=== PATIENT | female | born 1970 | race Caucasian/White ===

== ENCOUNTER 2017-04-09 21:25 | Emergency (ER) | payer BC, OTHER ==
[~2017-04-09] VITALS: Ht 152.4 cm; Wt 76.8 kg
[2017-04-09 21:30] VITALS: TEMP 37.2; Ht 152.4 cm; Wt 76.8 kg
[2017-04-09] MEDS ORDERED: SODIUM CHLORIDE 0.9% 1000ML 1,000 ML IV STA (21:45)
--- NOTE | 2017-04-09 21:56 | EMERGENCY ROOM VISIT NOTE ---
History Report prepared by Annette: Lucy Evangelista Under the Supervision of: Dr. Jj Cox M.D. First contact with patient: 21:39 Chief Complaint: CONGESTION Stated Complaint: CHEST CONGESTION, DIFFICULTY TAKING DEEP BREATHS History of Present Illness The patient is a 46 year old female who presents to the Emergency Room with complaints of constant congestion beginning 3 weeks ago. The patient states that she woke up 3 weeks ago with chest congestion and a cough. She reports that she flew to [place] a few days later and her cough worsened while she was on vacation. She complains of a non-productive cough, shortness of breath on exertion and intermittent chills. The patient denies any swelling in the legs, calf pain, and fever. She reports no history of kidney problems, blood clots, daily medications, control use, recent surgeries. She notes that she takes Claritin and Mucinex as needed and is not on any daily medications or blood thinners. Source of History: patient Onset: 3 weeks ago Position: other (global) Quality: other (congestion) Timing: constant Modifying Factors (Worsening): exertion Associated Symptoms: + chills, + cough, + SOB, No fevers Note: No calf pain, leg swelling. Review of Systems See HPI for pertinent positives & negatives. A total of 10 systems reviewed and were otherwise negative. Past Medical & Surgical Medical Problems: (1) No Known Active Medical Problems Family History No pertinent family history stated. Social History Smoking Status: Never Smoker Marital Status: Housing Status: lives with significant other Occupation Status: unemployed Current/Historical Medications Scheduled Ascorbic Acid (Vitamin C), 1,000 MG PO DAILY Levofloxacin (Levaquin), 1 TAB PO DAILY Prednisone (Prednisone), 50 MG PO DAILY Scheduled PRN Ibuprofen Tab (Advil), 400 MG PO UD PRN for Pain or Fever Pseudoephedrine-Guaifenesin (Mucinex D), 1 TAB PO BID PRN for Congestion Allergies Coded Allergies: Sulfa Antibiotics (Verified Allergy, Intermediate, Rash, 04/09/17) Physical Exam Vital Signs Date Time Temp Pulse Resp B/P (MAP) Pulse Ox O2 Delivery O2 Flow Rate FiO2 04/09/17 23:28 91 20 132/89 95 04/09/17 21:30 37.2 74 18 142/99 91 Room Air Physical Exam GENERAL: Patient is dyspneic and in mild distress HEENT: No acute trauma, normocephalic atraumatic, mucous membranes moist, no nasal congestion, no scleral icterus. NECK: No stridor, no adenopathy, no meningismus, trachea is midline. LUNGS: Crackles in the left lower lobe but otherwise clear, periodic dry cough. No wheeze, no rhonchi. HEART: Regular rate and rhythm. No murmurs, rubs, gallops appreciated. ABDOMEN: Soft, nontender, bowel sounds positive, no masses appreciated, no peritonitis. BACK: No midline tenderness, no CVA tenderness EXTREMITIES: Normal motion all extremities, no cyanosis, no edema. NEUROLOGIC: Alert and oriented, no acute motor or sensory deficits, no focal weakness, cranial nerves grossly intact. SKIN: No rash, no jaundice, no diaphoresis. Medical Decision & Procedures ER Provider Diagnostic Interpretation: Radiology results and stated below per my review and radiologist interpretation: CT ANGIOGRAPHY OF THE CHEST, PULMONARY EMBOLUS PROTOCOL FINDINGS: No pulmonary emboli are identified. There is no evidence of thoracic aortic dissection. The size of the heart is normal. There is no pericardial effusion. There are no enlarged thoracic lymph nodes. There are scattered tree-in-bud nodules within the lingula and left lower lobe. There is no pneumothorax or pleural effusion. There is no cavitation. Bony thorax and upper abdomen are unremarkable. IMPRESSION: 1. No pulmonary emboli identified. 2. Mild scattered tree-in-bud nodules within the left lower lobe and lingula which suggest bronchiolitis. Electronically signed by: Chai Puri M.D. 04/09/2017 10:44 PM Dictated Date/Time: 04/09/2017 10:37 PM Laboratory Results 04/09/17 21:54 Red Blood Count 4.68, Mean Corpuscular Volume 87.6, Mean Corpuscular Hemoglobin 29.1, Mean Corpuscular Hemoglobin Concent 33.2, Mean Platelet Volume 9.5, Neutrophils (%) (Auto) 58.5, Lymphocytes (%) (Auto) 34.1, Monocytes (%) (Auto) 5.5, Eosinophils (%) (Auto) 1.5, Basophils (%) (Auto) 0.2, Neutrophils # (Auto) 7.21, Lymphocytes # (Auto) 4.21, Monocytes # (Auto) 0.68, Eosinophils # (Auto) 0.19, Basophils # (Auto) 0.03 04/09/17 21:54 Test 04/09/17 21:54 04/09/17 22:00 White Blood Count 12.35 K/uL (4.8-10.8) Red Blood Count 4.68 M/uL (4.2-5.4) Hemoglobin 13.6 g/dL (12.0-16.0) Hematocrit 41.0 % (37-47) Mean Corpuscular Volume 87.6 fL (80-100) Mean Corpuscular Hemoglobin 29.1 pg (25-34) Mean Corpuscular Hemoglobin Concent 33.2 g/dl (32-36) Platelet Count 376 K/uL (130-400) Mean Platelet Volume 9.5 fL (7.4-10.4) Neutrophils (%) (Auto) 58.5 % Lymphocytes (%) (Auto) 34.1 % Monocytes (%) (Auto) 5.5 % Eosinophils (%) (Auto) 1.5 % Basophils (%) (Auto) 0.2 % Neutrophils # (Auto) 7.21 K/uL (1.4-6.5) Lymphocytes # (Auto) 4.21 K/uL (1.2-3.4) Monocytes # (Auto) 0.68 K/uL (0.11-0.59) Eosinophils # (Auto) 0.19 K/uL (0-0.5) Basophils # (Auto) 0.03 K/uL (0-0.2) RDW Standard Deviation 41.2 fL (36.4-46.3) RDW Coefficient of Variation 13.0 % (11.5-14.5) Immature Granulocyte % (Auto) 0.2 % Immature Granulocyte # (Auto) 0.03 K/uL (0.00-0.02) Est Creatinine Clear Calc Drug Dose 96.5 ml/min Estimated GFR () 121.9 Estimated GFR (Non- 105.2 BUN/Creatinine Ratio 15.6 (10-20) Calcium Level 9.2 mg/dl (8.5-10.1) Total Creatine Kinase 128 U/L (26-192) Creatine Kinase MB < 0.5 ng/ml (0.5-3.6) Creatine Kinase MB Ratio (0-3.0) Troponin I < 0.015 ng/ml (0-0.045) Bedside Hemoglobin 14.3 g/dl (12.0-16.0) Bedside Hematocrit 42 % (37-47) Bedside Sodium 137 mEq/L (135-144) Bedside Potassium 3.6 mEq/L (3.3-5.0) Bedside Chloride 99 mEq/L (101-112) Bedside Total CO2 24 mEq/l (24-31) Anion Gap 18.0 mmol/L (16-25) Bedside Blood Urea Nitrogen 10 mg/dl (7-18) Bedside Creatinine 0.6 mg/dl (0.6-1.3) Bedside Glucose (other) 95 mg/dl (70-99) Bedside Ionized Calcium (Seema) 1.17 mmol/l (1.12-1.32) Laboratory results as reviewed by me. Medications Administered Medications (Trade) Dose Ordered Sig/Cosme Route Start Time Stop Time Status Last Admin Dose Admin Sodium Chloride 1,000 ml @ 999 mls/hr Q1H1M STAT IV 04/09/17 21:45 04/09/17 22:45 DC 04/09/17 21:45 999 MLS/HR Albuterol/ Ipratropium (Duoneb) 3 ml NOW STAT INH 04/09/17 22:34 04/09/17 22:35 DC 04/09/17 22:34 3 ML Levofloxacin (Levaquin Tab) 750 mg NOW ONCE PO 04/09/17 23:15 04/09/17 23:16 DC 04/09/17 23:23 750 MG Prednisone (PredniSONE TAB) 60 mg NOW STAT PO 04/09/17 23:08 04/09/17 23:09 DC 04/09/17 23:23 60 MG Albuterol (Ventolin Hfa Inhaler) 2 puffs NOW ONCE INH 04/09/17 23:15 04/09/17 23:16 DC 04/09/17 23:23 2 PUFFS ECG Indication: other (Congestion) Rate (beats per minute): 73 Rhythm: normal sinus Findings: no acute ischemic change, no ectopy ED Course 2138: The patient was evaluated in room B4. A complete history and physical exam was performed. 2144: Sodium Chloride 1000 ml @ 999 mls/hr IV. 4: Duoneb 3ml INH. 2308: I reevaluated and updated the patient. She is feeling better after the breathing treatment. I discussed the risks and warnings of Levaquin. I advised no heavy lifting while on the medication. 2315: Albuterol 2 puffs INH, Levofloxacin 750mg PO. 2313: Reevaluated the patient. Discussed results and discharge instructions: She verbalized understanding and agreement. The patient is ready for discharge. Medical Decision Differential: Infectious, Reactive Airway Disease, Pneumonia, Pneumothorax, COPD , CHF, ACS, Pulmonary Embolism, MSK, GI, Dissection, amongst other etiologies entertained. Medication Reconciliation: I attest that I have personally reviewed the patient 's current medication list. Blood Pressure Screening: Patient was found to have a slightly elevated blood pressure due to illness. She was referred to her primary doctor for recheck and further treatment. 46 yr old female arrives with complain of SOB, GRIFFITHS, and mild hypoxia after flight to/from [facility]. With level of concern I do not feel patient is dimer indicated and that direct to CT PE indicated. Labs with mild elevated WBC. CT reveals no PE, but does have evidence of LLL inflammation which given symptoms and exam I feel is pneumonia. Given Levaquin, prednisone and duoneb. Feeling better with Duoneb. Comfortable with going home. Advised Follow up with PCP. RTED if worsening or other concerns. Reviewed risks, specifically tendon/aortic, of Levaquin. Impression Primary Impression: Pneumonia involving left lung Scribe Attestation The scribe's documentation has been prepared under my direction and personally reviewed by me in its entirety. I confirm that the note above accurately reflects all work, treatment, procedures, and medical decision making performed by me. Departure Information Dispostion Home / Self-Care Prescriptions Prednisone (PREDNISONE) 50 Mg Tab 50 MG PO DAILY for 5 Days, #5 TAB Prov: Jj Cox M.D. 04/09/17 Levofloxacin (LEVAQUIN) 750 Mg Tab 1 TAB PO DAILY for 5 Days, #5 TAB Prov: Jj oCx M.D. 04/09/17 Referrals No Doctor, Assigned (PCP) Forms HOME CARE DOCUMENTATION FORM, IMPORTANT VISIT INFORMATION Patient Instructions ED Pneumonia Adult, My [facility] Additional Instructions Your blood pressure was elevated during this visit. This is quite common in many people who are being evaluated in the Emergency Department for many reasons. However, it is important that you have your Primary Care Provider recheck your blood pressure and discuss whether treatment will be needed. adjunct faculty for medical terminology elevated blood pressure can lead to strokes, heart attacks, kidney failure amongst other medical issues. If you develop severe headaches, chest pain, weakness in arms or legs, or other concerning symptoms call 911.
[2017-04-09] MEDS ORDERED: OPTIRAY 320 IV PRN (22:00)
[2017-04-09] MEDS ORDERED: IBUP-103 PO (22:05)
[2017-04-09] MEDS ORDERED: PSEU60TA80 PO (22:05)
[2017-04-09] MEDS ORDERED: ASCO500T3 PO (22:05)
[2017-04-09 22:08] LABS: BASO % 0.2 %; BASO ABS # 0.03 K/uL (0-0.2); COMPLETE YES; EOS % 1.5 %; IG% 0.2 %; LYMPH % 34.1 %; LYMPH ABS # 4.21 K/uL (1.2-3.4); MEAN CELL VOLUME 87.6 fL (80-100); MEAN CORPUSCULAR HEMOGLOBIN 29.1 pg (25-34); MEAN CORPUSCULAR HGB CONC 33.2 g/dl (32-36); MEAN PLATELET VOLUME 9.5 fL (7.4-10.4); MONO % 5.5 %; NEUT % 58.5 %; PLATELET COUNT 376 K/uL (130-400); RED BLOOD COUNT 4.68 M/uL (4.2-5.4); WHITE BLOOD COUNT 12.35 K/uL (4.8-10.8)
[2017-04-09 22:16] LABS: ISTAT CREATININE 0.6 mg/dl (0.6-1.3); ISTAT HEMOGLOBIN 14.3 g/dl (12.0-16.0); ISTAT IONIZED CALCIUM 1.17 mmol/l (1.12-1.32)
[2017-04-09 22:33] LABS: BLOOD UREA NITROGEN 10 mg/dl (7-18); BUN/CREATININE RATIO 15.6 (10-20); CALCIUM 9.2 mg/dl (8.5-10.1); CARBON DIOXIDE 25 mmol/L (21-32); CHLORIDE 102 mmol/L (98-107); CREATININE 0.66 mg/dl (0.60-1.20); GLUCOSE 88 mg/dl (70-99); POTASSIUM 3.5 mmol/L (3.5-5.1); SODIUM 138 mmol/L (136-145)
[2017-04-09] MEDS ORDERED: ALBUT/IPRATROP 3MG/0.5MG NEB 3 ML VIAL INH STA (22:34)
--- NOTE | 2017-04-09 22:45 | DIAGNOSTIC IMAGING REPORT ---
CT ANGIOGRAPHY OF THE CHEST, PULMONARY EMBOLUS PROTOCOL CLINICAL HISTORY: Hypoxia. Shortness of breath. COMPARISON STUDY: No previous studies for comparison. TECHNIQUE: Following IV administration of 90 mL of Optiray-320, helical axial images of the chest were obtained utilizing the pulmonary embolus protocol. Maximal intensity projections and sagittal and coronal reformats were viewed on an independent 3D workstation. IV contrast was administered without complication. CT DOSE: 311.47 mGy.cm FINDINGS: No pulmonary emboli are identified. There is no evidence of thoracic aortic dissection. The size of the heart is normal. There is no pericardial effusion. There are no enlarged thoracic lymph nodes. There are scattered tree-in-bud nodules within the lingula and left lower lobe. There is no pneumothorax or pleural effusion. There is no cavitation. Bony thorax and upper abdomen are unremarkable. IMPRESSION: 1. No pulmonary emboli identified. 2. Mild scattered tree-in-bud nodules within the left lower lobe and lingula which suggest bronchiolitis. Electronically signed by: Chai Puri M.D. 04/09/2017 10:44 PM Dictated Date/Time: 04/09/2017 10:37 PM
[2017-04-09] MEDS ORDERED: PRED50TA PO (23:10)
[2017-04-09] MEDS ORDERED: LEVO750T23 PO (23:10)
[2017-04-09] MEDS ORDERED: LEVOFLOXACIN 250 MG TAB PO ONE (23:15)
[2017-04-09] MEDS ORDERED: ALBUTEROL HFA 8 GM INHALER INH ONE (23:15)
[2017-04-09 23:28] VITALS: BP 132/89; PULSE 91; O2SAT 95
== END 2017-04-09 23:29 | disposition home or self-care (01) ==
LOC: C.EDB 21:27
DX: J18.9 Pneumonia, unspecified organism (principal); Z79.899 Other long term (current) drug therapy

== ENCOUNTER → 2017-07-16 | Outpatient (CLI) | payer OTHER ==
[~2017-07-16] MED LIST: ASCO500T3 PO; IBUP-103 PO; PSEU60TA80 PO
--- NOTE | 2017-07-17 13:56 | MAMMOGRAPHY REPORT ---
BILATERAL DIGITAL SCREENING MAMMOGRAM TOMOSYNTHESIS WITH CAD: 07/16/2017 CLINICAL HISTORY: Routine screening. Baseline exam. TECHNIQUE: Breast tomosynthesis in addition to standard 2D mammography was performed. Current study was also evaluated with a Computer Aided Detection (CAD) system. COMPARISON: No prior exams were available for comparison. BREAST COMPOSITION: There are scattered areas of fibroglandular density in both breasts. FINDINGS: No suspicious masses, calcifications, or areas of architectural distortion are noted in ei ther breast. Scattered bilateral benign-appearing calcifications are noted. IMPRESSION: ACR BI-RADS CATEGORY 2: BENIGN There is no mammographic evidence of malignancy. A 1 year screening mammogram is recommended. The pa tient will receive written notification of the results. Approximately 10% of breast cancers are not detected with mammography. A negative mammographic report should not delay biopsy if a clinically suggestive mass is present. Madeline Anderson M.D. ah/:07/16/2017 15:43:14 Predatory Animal Exterminator: Franchesca BALDERRAMA(Rashid)(M), [facility] letter sent: Normal 1/2 BI-RADS Code: ACR BI-RADS Category 2: Benign
== END | disposition home or self-care (01) ==
LOC: C.MAMM 10:54
PROVIDERS: ATTEND Obstetrics & Gynecology Gynecology
DX: Z12.31 Encounter for screening mammogram for malignant neoplasm of breast (principal)